=== PATIENT | male | born 1970 | race American Indian/Alaskan Native ===

== ENCOUNTER 2019-02-02 17:47 | Emergency (ER) | payer SELFPAY ==
--- NOTE | 2019-02-02 18:05 | Emergency Department Report ---
Blank Doc - Documentation Documentation: 49-year-old male that presents with dizziness, headache, and uncontrolled HTN. Stated has not been taking blood pressure medications. This initial assessment/diagnostic orders/clinical plan/treatment(s) is/are subject to change based on patient's health status, clinical progression and re- assessment by fellow clinical providers in the ED. Further treatment and workup at subsequent clinical providers discretion. Patient/guardians urged not to elope from the ED as their condition may be serious if not clinically assessed and managed. Initial orders include: 1- Patient sent to MAIN for further evaluation and treatment 2- labs 3- EKG 4- CT head 5- catapress and RN to repeat vitals q30 mins
[2019-02-02] MEDS ORDERED: cloNIDine 0.2 MG TAB PO ONE (18:06)
[2019-02-02 18:47] LABS: Basophils # (Auto) 0.1 K/mm3 (0.0-0.1); Basophils % (Auto) 1.2 % (0.0-1.8); Eosinophils # (Auto) 0.1 K/mm3 (0.0-0.4); Eosinophils % (Auto) 2.3 % (0.0-4.3); Hematocrit 44.8 % (35.5-45.6); Hemoglobin 14.6 gm/dl (11.8-15.2); Lymphocytes # (Auto) 1.5 K/mm3 (1.2-5.4); Lymphocytes % (Auto) 27.1 % (13.4-35.0); Mean Corpuscular HGB Conc 33 % (32-34); Mean Corpuscular Volume 84 fl (84-94); Monocytes # (Auto) 0.5 K/mm3 (0.0-0.8); Monocytes % (Auto) 8.8 % (0.0-7.3); Platelet Count 235 K/mm3 (140-440); Red Blood Count 5.31 M/mm3 (3.65-5.03); Red Cell Distribution Width 15.1 % (13.2-15.2)
[2019-02-02 18:59] LABS: Alanine Aminotransferase 14 units/L (7-56); Albumin 4.3 g/dL (3.9-5); BUN/Creatinine Ratio 11; Blood Urea Nitrogen 15 mg/dL (9-20); Calcium 9.6 mg/dL (8.4-10.2); Hemolysis Index 22
--- NOTE | 2019-02-02 19:31 | Cat Scan Report ---
CT head/brain wo con INDICATION / CLINICAL INFORMATION: 49 years Male; headache and dizziness w HTN. TECHNIQUE: Routine CT head without contrast. All CT scans at this location are performed using CT dos e reduction for ALARA by means of automated exposure control. COMPARISON: None. FINDINGS: BRAIN / INTRACRANIAL CONTENTS: There is mild to moderate cerebral white matter disease most consisten t with microvascular angiopathy, somewhat advanced for the patient's age. There is no CT evidence of acute intracranial hemorrhage or significant mass effect. The ventricular system is appropriate in si ze and configuration. ORBITS: No significant abnormality of visualized orbits. SINUSES / MASTOIDS: No significant abnormality the visualized paranasal sinuses or mastoid air cells. CRANIOCERVICAL JUNCTION: No significant abnormality. ADDITIONAL FINDINGS: None. IMPRESSION: 1. 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 Signer Name: Raza Mata MD Signed: 02/02/2019 7:26 PM Workstation Name: [id number]
[2019-02-02 19:43] LABS: Bacteria,Urine 2+ /HPF (Negative); Bilirubin,Urine NEG (Negative); Blood,Urine NEG (Negative); Color,Urine Yellow (Yellow); Hyaline Casts,Urine 1 /LPF; Mucus,Urine FEW /HPF; Sperm,Urine 1+ /HPF (NP)
[2019-02-02 22:21] VITALS: BP 157/103
[2019-02-02] MEDS ORDERED: MECLIZINE 25 MG TAB PO ONE (23:02)
--- NOTE | 2019-02-02 23:10 | Emergency Department Report ---
ED General Adult HPI - General Chief complaint: Dizziness Stated complaint: HBP/DIZZY Time Seen by Provider: 02/02/19 18:03 Source: patient Mode of arrival: Ambulatory Limitations: No Limitations - History of Present Illness Initial comments: Patient presents to the emergency department with a chief complaint of dizziness and elevated blood pressure. Patient states she has a history of hypertension and is supposed to take lisinopril daily for his blood pressure but has not taken it as prescribed. Patient also complains of dizziness that started 2 days ago without headache. Patient states she feels like the room is spinning. Due to the patient's dizziness and alerted him to check his blood pressure which he states was 244/140 while at work today. She denies chest pain, shortness breath, or abdominal pain -: Gradual Location: head Severity scale (0 -10): 3 Quality: dull Improves with: none Worsens with: none Associated Symptoms: denies other symptoms Treatments Prior to Arrival: none - Related Data Previous Rx's Medication Instructions Recorded Last Taken Type Aspirin [Aspirin BABY CHEW TAB] 81 mg PO QDAY #30 tab.chew 01/23/14 Unknown Rx Carvedilol [Coreg] 25 mg PO BID #60 tablet 01/23/14 Unknown Rx Lisinopril [Zestril TAB] 20 mg PO BID #60 tablet 01/23/14 Unknown Rx Simvastatin [Zocor TAB] 10 mg PO QHS #30 tablet 01/23/14 Unknown Rx amLODIPine 10 mg PO QDAY #30 tablet 01/23/14 Unknown Rx hydrALAZINE [Apresoline TAB] 25 mg PO Q8HR #90 tablet 01/23/14 Unknown Rx Meclizine [Antivert] 25 mg PO TID PRN #30 tablet 02/02/19 Unknown Rx amLODIPine [Norvasc] 10 mg PO DAILY #30 tab 02/02/19 Unknown Rx hydroCHLOROthiazide [Hctz] 12.5 mg PO QDAY #30 capsule 02/02/19 Unknown Rx Allergies Allergy/AdvReac Type Severity Reaction Status Date / Time No Known Allergies Allergy Unverified 01/15/14 10:19 ED Review of Systems ROS: Stated complaint: HBP/DIZZY Other details as noted in HPI Constitutional: denies: chills, fever Eyes: denies: eye pain, eye discharge, vision change ENT: denies: ear pain, throat pain Respiratory: denies: cough, shortness of breath, wheezing Cardiovascular: denies: chest pain, palpitations Endocrine: no symptoms reported Gastrointestinal: denies: abdominal pain, nausea, diarrhea Genitourinary: denies: urgency, dysuria Musculoskeletal: denies: back pain, joint swelling, arthralgia Skin: denies: rash, lesions Neurological: other (dizziness). denies: headache, weakness, paresthesias Psychiatric: denies: anxiety, depression Hematological/Lymphatic: denies: easy bleeding, easy bruising ED Past Medical Hx - Past Medical History Previous Medical History?: Yes Hx Hypertension: Yes (no medication x 1 month, uncontrolled) - Surgical History Past Surgical History?: No - Social History Smoking Status: Never Smoker Substance Use Type: Alcohol - Medications Home Medications: Home Medications Medication Instructions Recorded Confirmed Last Taken Type Aspirin [Aspirin BABY CHEW TAB] 81 mg PO QDAY #30 tab.chew 01/23/14 Unknown Rx Carvedilol [Coreg] 25 mg PO BID #60 tablet 01/23/14 Unknown Rx Lisinopril [Zestril TAB] 20 mg PO BID #60 tablet 01/23/14 Unknown Rx Simvastatin [Zocor TAB] 10 mg PO QHS #30 tablet 01/23/14 Unknown Rx amLODIPine 10 mg PO QDAY #30 tablet 01/23/14 Unknown Rx hydrALAZINE [Apresoline TAB] 25 mg PO Q8HR #90 tablet 01/23/14 Unknown Rx Meclizine [Antivert] 25 mg PO TID PRN #30 tablet 02/02/19 Unknown Rx amLODIPine [Norvasc] 10 mg PO DAILY #30 tab 02/02/19 Unknown Rx hydroCHLOROthiazide [Hctz] 12.5 mg PO QDAY #30 capsule 02/02/19 Unknown Rx ED Physical Exam - General Limitations: No Limitations General appearance: alert, in no apparent distress - Head Head exam: Present: atraumatic, normocephalic - Eye Eye exam: Present: normal appearance, PERRL, EOMI - ENT ENT exam: Present: mucous membranes moist - Neck Neck exam: Present: normal inspection - Respiratory Respiratory exam: Present: normal lung sounds bilaterally. Absent: respiratory distress - Cardiovascular Cardiovascular Exam: Present: regular rate, normal rhythm. Absent: systolic murmur, diastolic murmur, rubs, gallop - GI/Abdominal GI/Abdominal exam: Present: soft, normal bowel sounds. Absent: distended, tenderness - Rectal Rectal exam: Present: deferred - Extremities Exam Extremities exam: Present: normal inspection - Back Exam Back exam: Present: normal inspection - Neurological Exam Neurological exam: Present: alert, oriented X3, CN II-XII intact, other (normal [id number], [id number], rapid hand movement). Absent: motor sensory def icit - Psychiatric Psychiatric exam: Present: normal affect, normal mood - Skin Skin exam: Present: warm, dry, intact, normal color. Absent: rash ED Course Vital Signs 02/02/19 02/02/19 02/02/19 18:03 18:10 20:27 Temperature 97.2 F L Pulse Rate 70 70 61 Respiratory 17 16 Rate Blood Pressure 226/148 222/144 Blood Pressure 205/113 [Left] O2 Sat by Pulse 96 98 Oximetry 02/02/19 02/02/19 02/02/19 21:56 22:00 22:16 Temperature 97.8 F Pulse Rate 59 L 56 L 56 L Respiratory 14 13 13 Rate Blood Pressure 156/100 157/103 Blood Pressure 156/100 [Left] O2 Sat by Pulse 99 98 99 Oximetry ED Medical Decision Making - Lab Data Result diagrams: 02/02/19 18:24 02/02/19 18:24 Lab Results 02/02/19 02/02/19 02/02/19 Range/Units 18:24 18:24 Unknown WBC 5.6 (4.5-11.0) K/mm3 RBC 5.31 H (3.65-5.03) M/mm3 Hgb 14.6 (11.8-15.2) gm/dl Hct 44.8 (35.5-45.6) % MCV 84 (84-94) fl MCH 28 (28-32) pg MCHC 33 (32-34) % RDW 15.1 (13.2-15.2) % Plt Count 235 (140-440) K/mm3 Lymph % (Auto) 27.1 (13.4-35.0) % [place] % (Auto) 8.8 H (0.0-7.3) % Eos % (Auto) 2.3 (0.0-4.3) % Baso % (Auto) 1.2 (0.0-1.8) % Lymph # 1.5 (1.2-5.4) K/mm3 [place] # 0.5 (0.0-0.8) K/mm3 Eos # 0.1 (0.0-0.4) K/mm3 Baso # 0.1 (0.0-0.1) K/mm3 Seg Neutrophils % 60.6 (40.0-70.0) % Seg Neutrophils # 3.4 (1.8-7.7) K/mm3 Sodium 139 (137-145) mmol/L Potassium 3.4 L (3.6-5.0) mmol/L Chloride 98.1 (98-107) mmol/L Carbon Dioxide 26 (22-30) mmol/L Anion Gap 18 mmol/L BUN 15 (9-20) mg/dL Creatinine 1.4 (0.8-1.5) mg/dL Estimated GFR > 60 ml/min BUN/Creatinine Ratio 11 % Glucose 104 H (75-100) mg/dL Calcium 9.6 (8.4-10.2) mg/dL Total Bilirubin 0.60 (0.1-1.2) mg/dL AST 17 (5-40) units/L ALT 14 (7-56) units/L Alkaline Phosphatase 68 (35-129) units/L Total Protein 7.5 (6.3-8.2) g/dL Albumin 4.3 (3.9-5) g/dL Albumin/Globulin Ratio 1.3 % Urine Color Yellow (Yellow) Urine Turbidity Clear (Clear) Urine pH 6.0 (5.0-7.0) Ur Specific [place] 1.019 (1.003-1.030) Urine Protein 30 mg/dl (Negative) mg/dL Urine Glucose (UA) Neg (Negative) mg/dL Urine Ketones Neg (Negative) mg/dL Urine Blood Neg (Negative) Urine Nitrite Neg (Negative) Urine Bilirubin Neg (Negative) Urine Urobilinogen 4.0 (<2.0) mg/dL Ur Leukocyte Esterase Neg (Negative) Urine WBC (Auto) 2.0 (0.0-6.0) /HPF Urine RBC (Auto) 3.0 (0.0-6.0) /HPF U Epithel Cells (Auto) < 1.0 (0-13.0) /HPF Urine Bacteria (Auto) 2+ (Negative) /HPF Hyaline Casts 1 /LPF Urine Mucus Few /HPF Urine Sperm 1+ (EXPERIMENTAL MECHANIC) /HPF - Radiology Data Radiology results: report reviewed - Medical Decision Making Discussed results and plan of care with patient Being was given to the patient prior to me seeing them and because I was unaware of it being ordered Critical care attestation.: If time is entered above; I have spent that time in minutes in the direct care of this critically ill patient, excluding procedure time. ED Disposition Clinical Impression: Hypertension, Vertigo Disposition: TO HOME OR SELFCARE Is pt being admited?: No Does the pt Need Aspirin: No Condition: Stable Instructions: Hypertension (ED) Additional Instructions: return if worse Prescriptions: hydroCHLOROthiazide [Hctz] 12.5 mg PO QDAY #30 capsule Referrals: [facility] [Provider Group] - 3-5 Days [facility] [Provider Group] - 3-5 Days JASMYN TURCIOS MD [Staff Physician] - 3-5 Days Time of Disposition: 23:11
== END 2019-02-02 23:30 | disposition home or self-care (01) ==
LOC: ED 17:47
DX: R42 Dizziness and giddiness (principal); I10 Essential (primary) hypertension; Z79.899 Other long term (current) drug therapy
CPT/HCPCS: 36415; 70450; 80053; 81001; 85025; 93005; 93010